=== PATIENT | female | born 1985 | race Caucasian/White ===

== ENCOUNTER → 2023-03-10 14:14 | Outpatient (CLI) | payer BC, SELFPAY ==
--- NOTE | 2023-03-10 14:17 | MR_ITS ---
FINAL REPORT CLINICAL HISTORY: PARESTHESIA. EPISODE OF NUMBNESS AND TINGLING BILATERAL ARMS. FINDINGS: Multiplanar MR imaging of the brain was performed without and with contrast. There is no evidence of intracranial hemorrhage or mass. No abnormal extra-axial fluid collection is seen. The ventricular size is within normal limits. There is no evidence of shift of the midline structures. The posterior fossa and brainstem have an unremarkable appearance. No area of abnormal restricted diffusion is identified. No abnormal contrast enhancement is seen. Normal major vessel vascular flow voids are noted. IMPRESSION: No acute intracranial abnormality identified. Reviewed, Interpreted and Dictated by Charan Gomez III, MD Transcribed by Nicki Titus Authenticated and [facility]
--- NOTE | 2023-03-10 15:23 | CA_ITS ---
FINAL REPORT TECHNIQUE: Color Doppler, duplex Doppler and bush scale sonography of the bilateral neck arterial vasculature was performed. Velocities were measured in the carotid arteries. Stenosis evaluation based on the validated velocity criteria. CLINICAL HISTORY: PARASTHESIA LEYDA ARMS FINDINGS: The peak systolic velocity of the right common carotid artery is 78 cm/s. The peak systolic velocity of the right internal carotid artery is 136 cm/s and end diastolic velocity 62 cm/s. The ICA/CCA ratio is 2.1. No significant plaque is present. The right external carotid artery is patent. The right vertebral artery is patent with antegrade flow. The peak systolic velocity of the left common carotid artery is 71 cm/s. The peak systolic velocity of the left internal carotid artery is 107 cm/s and end diastolic velocity 56 cm/s. The ICA/CCA ratio is 1.5. No significant plaque is present. The left external carotid artery is patent.The left vertebral artery is patent with antegrade flow. IMPRESSION: No significant stenosis identified. Bilateral patent vertebral arteries with antegrade flow. Reviewed, Interpreted and Dictated by Charan Gomez III, MD Transcribed by Nicki Titus Authenticated and [facility]
== END ==
PROVIDERS: PCP Internal Medicine Adolescent Medicine; Visit Provider Physician Assistant
DX: G60.9 Hereditary and idiopathic neuropathy, unspecified (principal); R20.2 Paresthesia of skin
CPT/HCPCS: 70553; 93880; A9576

== ENCOUNTER → 2023-04-01 23:20 | Outpatient (CLI) | payer BC, SELFPAY | PROVIDERS: Visit Provider Nurse Practitioner Family | DX: J02.9 Acute pharyngitis, unspecified (principal) | CPT/HCPCS: 87070 ==

== ENCOUNTER 2025-02-17 10:20 | Outpatient (CLI) | payer BC, SELFPAY ==
--- OUTSIDE RECORDS SUMMARY | 2025-02-17 10:22 | XMS_ITS | Clinical Summary ---
[facility] Address [address] [place] [address] Care Team Providers Care Head And Neck Surgeon Name Role Phone Provider, No Known Primary Care Provider Unavail able Allergies No known active allergies Medications Cholecalciferol (VITAMIN D) 2000 units capsule Take by mouth. Active docusate sodium 100 MG capsule Take 100 mg by mouth 2 (Two) Times a Day. 60 each 2 07/16/2018 Active ibuprofen (ADVIL,MOTRIN) 600 MG tablet Take 1 tablet by mouth Every 6 (Six) Hours As Needed for Mild Pain . 25 tablet 2 11/05/2018 10:14 AM EDT 11/05/2018 Active Junel 08/15 1-20 MG-MCG per tabletIndication s:Annual physical exam TAKE 1 TABLET BY MOUTH EVERY DAY 28 tablet 2022 Active Active Problems Problem Noted Date Diagnosed Date labor in third trimester 10/22/2018 Dichorionic diamniotic twin in third t rimester 07/14/2018 Short cervix affecting 07/14/2018 Resolved Problems Problem Noted Date Diagnosed Date Resolved Date Currently 11/02/2018 9 labor 10/12/2018 10/18/2018 uterine contractions in second trimester, antepartum 07/21/2018 10/18/2018 uterine contractions in second trimester, antepartum 07/20/2018 07/20/2018 Choroid plexus cysts, , affecting care of mother, antepartum 07/14/2018 10/18/2018 Premature labor 07/14/2018 07/16/2018 Family History Medical History Relation Name Comments Heart attack Father Diabetes Mother Hypertension Mother Stroke Paternal Grandmother Relation Name Status Comments Father Mother Alive Paternal Grandmother Social History Tobacco Use Types Packs/Day Years Used Date Smoking Tobacco: Never Smokeless Tobacco: Never Tobacco Cessation:Counseling Given: No Alcohol Use Standard Drinks/Week Comments Yes 0 (1 standard drink = 0.6 oz pur e alcohol) socially when not [place] Depression Scale Answer Date Recorded Retired [place] Depression Score 3 11/03/2018 Retired EPD Scale: Thought of Harming Self Unrec ognized value 11/03/2018 Abuse Screen Answer Date Recorded Unsafe at Home or Work/School Not on file Feels Threatened by Someone? Not on file 02/2023 Does Anyone Keep You from Co ntacting Others or Doint Things Outside the Home? Not on file 05/03/2023 Physical Sign of Abuse Present Not on file 1 Housing Stability Answer Date Recorded Current Living Arrangements Not on file 02/2023 Potentially Unsafe Housing Conditions Not on melyssa e 05/03/2023 Family and Community Support Answer Mo e Recorded Help with Day-to-Day Activities Not on file 05/03/2023 Lonely or Isolated Not on file 05/03/2023 Employment Answer Date Recorded Do you want help finding or keeping work or a elian b? Not on file 05/03/2023 Disabilities Answer Date Recorded Concentrating, Remembering, or Making Decisions Difficulty Not on file 05/03/2023 Doing Errands Independently Difficulty Not on fi le 05/03/2023 Education Answer Date Recorded Help with school or training? Not on file Preferred Language Not on file 05/03/2023 Comments No Sex and Gender Information Value Date Recorded Sex Assigned at Not on file Legal Sex Female 10:35 AM EDT Gender Identity Not on file Sexual Orientation Not on file Last Filed Vital Signs Vital Sign Reading Time Taken Comments Blood Pressure 120/78 01/22/2021 11:04 AM EDT Pulse 72 11/05/2018 11:43 AM EDT Temperature 36.4 C (97.6 F) 01/22/2021 11:04 AM EDT Respiratory Rate 18 11/05/2018 7:00 AM EDT Oxygen Saturation 100% 11/02/2018 10:26 PM EDT Inhaled Oxygen Concentration - - Weight 65.3 kg (144 lb) 01/22/2021 11:04 AM EDT Height 162.6 cm (5' 4 ) 11/02/2018 3:26 PM EDT Body Mass Index 24.72 11/02/2018 3:26 PM EDT Plan of Treatment Upcoming Encounters Date Type Department Care Team (Late st Contact Info) Description 04/25/2025 9:30 AM EDT Office Visit [facility] [address] [place] [address] Angel Ordoñez MD [address] [facility] [address] [place] [address] Health Maintenance Due Date Last Done Comments Annual Gynecologic Pelvic an d Breast Exam 1985 ANNUAL PHYSICAL 01/22/2022 01/22/2021 MAMMOGRAM 2024 COVID-19 Vaccine (3 - 2023-2 5 season) 2024 09/03/2020, 08/06/2020 INFLUENZA VACCINE 04/26/2025 TDAP/TD VACCINES (2 - Td or Tdap) 11/06/2028 11/06/2018 HEPATITIS C SCREENING Completed 05/04/2018 Pneumococcal Vaccine 0-49 Aged Out No longer eligible based on patient's age to complete this topic Procedures Procedure Name Priority Date/Time Associated Diagnosis Comments HEPATITIS C ANTIBODY Routine 05/04/2018 from Last 3 Months or Most Recently Relevant to Health Maintenance Results * Hepatitis C Antibody (05/04/2018) External Hepatitis C Ab Negative Blood us Historical Provider LAB BLOOD ORDERABLES Amisha l Result from Last 3 Months or Most Recently Relevant to Health Maintenance Insurance [facility] PPO Advance Directives * CPR (Attempt to Resuscitate) (Latest Code Status on File) Date Activated Date Inactivated Comments 11/02/2018 11:55 PM 11/05/2018 6:02 PM Question Answer Comments Code Status (Patient has no pulse and is not breathing): CPR (Attempt to Resuscitate) Medical Interventions (Patie nt has pulse or is breathing): Full * CPR (Attempt to Resuscitate) Date Activated Date Inactivated Comments 10/12/2018 11:30 PM 10/18/2018 3:52 PM Question Answer Comments Code Status (Patient has no pulse and is not breathing): CPR (Attempt to Resuscitate) Medical Interventions (Patie nt has pulse or is breathing): Full * CPR (Attempt to Resuscitate) Date Activated Date Inactivated Comments 07/20/2018 12:38 AM 07/20/2018 2:40 PM Question Answer Comments Code Status (Patient has no pulse and is not breathing): CPR (Attempt to Resuscitate) Medical Interventions (Patie nt has pulse or is breathing): Full * CPR (Attempt to Resuscitate) Date Activated Date Inactivated Comments 07/14/2018 2:49 PM 07/16/2018 4:56 PM Question Answer Comments Code Status (Patient has no pulse and is not breathing): CPR (Attempt to Resuscitate) Medical Interventions (Patie nt has pulse or is breathing): Full Care Teams Head And Neck Surgeon Relationship Specialty Start Date End Date Provider, [place] [address] PCP - General 06/30/18
--- NOTE | 2025-02-17 10:23 | MM_ITS ---
PROCEDURE INFORMATION: Exam: MG Bilateral Screening 3D Mammography Exam date and time: 02/17/2025 10:31 AM Age: 39 years old Clinical indication: Screening examination. Family history of breast carcinoma. TECHNIQUE: Imaging protocol: Bilateral Screening tomosynthesis and 2D mammography including computer-aided detection (CAD) when performed. COMPARISON: No relevant prior studies available. FINDINGS: MAMMOGRAPHY: Breast composition: The breasts are heterogeneously dense, which may obscure small masses. Mass: No suspicious masses. Architectural distortion: No suspicious distortion. Calcifications: No suspicious calcifications. Asymmetric density: None. Skin thickening: None. Axillary adenopathy: None. IMPRESSION: 1. No mammographic evidence of malignancy. Annual screening is recommended unless otherwise clinically indicated. 2. Given the reported risk factors for this patient, a breast cancer risk assessment may prove useful for further evaluation. ASSESSMENT: BI-RADS Category 1: Negative.
--- OUTSIDE RECORDS SUMMARY | 2025-02-17 10:23 | XMS_ITS | Clinical Summary ---
Author Organization Healthcare Address [address] [place] [address] Care Team Providers Care Collection Development Librarian Name Role Phone Marcio Pedraza MD Primary Care Provider + [phone] Allergies No known active allergies Medications fluticasone (Flonase) 50 MCG/ACT nasal spray Administer 1 spray into each nostril 1 (one) time each day. Shake gently. Before first use, prime pump. After use, clean tip and replace cap. Active sertraline (Zoloft) 50 MG tablet Take 1 tablet (50 mg) by mouth 1 (one) time each day. Active Active Problems No known active problems Social History Tobacco Use Types Packs/Day Years Used Date Smoking Tobacco: Never Smokeless Tobacco: Never Tobacco Cessation:Counseling Given: Not Answered Humiliation, Afraid, Rape, and Kick questionnair e Answer Date Recorded Within the last year, have y ou been afraid of your partner or ex-partner? No 05/12/2024 Within the last year, have y ou been humiliated or emotionally abused in other ways by your partner or ex-partner? No Within the last year, have y ou been kicked, hit, slapped, or otherwise physically hurt by your partner or ex-partner? No 05/12/2024 Within the last year, have y ou been raped or forced to have any kind of sexual activity by your partner or ex-partner? No 05/12/2024 PHQ-2 Answer Date Recorded Patient Health Questionnaire-2 Score 0 05/19/2024 Hunger Vital Sign Answer Date Recorded Within the past 12 months, y ou worried that your food would run out before you got the money to buy more. Never true 10/17/20 24 Within the past 12 months, t he food you bought just didn't last and you didn't have money to get more. Never true 05/12/2024 PRAPARE - Transportation Answer Date Re corded In the past 12 months, has l ack of transportation kept you from medical appointments or from getting medications? No 04/26 In the past 12 months, has l ack of transportation kept you from meetings, work, or from getting things needed for daily living? No 05/12/2024 Housing Stability Vital Sign Answer Mo e Recorded In the last 12 months, was t here a time when you were not able to pay the mortgage or rent on time? No 05/12/2024 Number of Places Lived in the Last Year Not on f ile 05/12/2024 In the last 12 months, was t here a time when you did not have a steady place to sleep or slept in a care home (including now)? No 05/12/2024 Safety and Environment Answer Date Adolph rded Do you worry that your child may have been physically abused? No 05/12/2024 Do you worry that your child may have been sexua lly abused? No 05/12/2024 Are there any guns kept in o r around your home or where your child spends time? No 05/12/2024 Guns Unloaded or Locked Away Not on file Comments Unknown Sex and Gender Information Value Date Recorded Sex Assigned at Not on file Legal Sex Female 8:08 PM EDT Gender Identity Not on file Sexual Orientation Not on file Last Filed Vital Signs Vital Sign Reading Time Taken Comments Blood Pressure 114/80 05/19/2024 8:46 AM EDT Pulse 78 05/19/2024 8:46 AM EDT Temperature 37.1 C (98.7 F) 05/19/2024 8:46 AM EDT Respiratory Rate 18 05/19/2024 8:46 AM EDT Oxygen Saturation 98% 05/19/2024 8:46 AM EDT Inhaled Oxygen Concentration - - Weight 72 kg (158 lb 10.3 oz) 05/19/2024 8:46 AM EDT Height 162.6 cm (5' 4 ) 05/19/2024 8:46 AM EDT Body Mass Index 27.23 05/19/2024 8:46 AM EDT Plan of Treatment Health Maintenance Due Date Last Done Comments [facility]-HIV Screening 1984 [facility]-Hepatitis C Screening 1984 [facility]-/Child/Adol SDOH Screenings 1984 [facility]-Varicella Vaccines (1 of 2 - 13+ 2-dose series) 1997 HPV Vaccines (1 - 3-dose series) 1999 [facility]- SDOH Screenings 2002 [facility]-Adult SDOH Screenings 2002 [facility]-Hepatitis B Vaccines (1 of 3 - 19+ 3-dose series) 2003 [facility]-Pap Smear 2005 [facility]-Cervical Cancer Screening 2014 [facility]-HPV/Cotest 2014 [facility]PU-KIMRF-70 Vaccine ( - season) 2024 09/03/2020, 08/06/2020 [facility]-Influenza Vaccine (#1) 2025 07/18/2019 [facility]-Depression Screening 05/19/2025 05/19/2024 [facility]-DTaP,Tdap,and Td Vaccine s (2 - Td or Tdap) 11/06/2028 11/06/2018 [facility]-Zoster Vaccines (1 of 2) 2034 [facility]-Obesity Intervention Completed 024, 05/12/2024 [facility]-HIB Vaccines Aged Out No longer e ligible based on patient's age to complete this topic [facility]-Hepatitis A Vaccines Aged Out No longer eligible based on patient's age to complete this topic [facility]-IPV Vaccines Aged Out No longer e ligible based on patient's age to complete this topic [facility]-Pneumococcal Vaccine: Pediatrics (0 to 5 Years) and At-Risk Patients (6 to 49 Years) Aged Out No longer eligible b ased on patient's age to complete this topic [facility]-Rotavirus Vaccines Aged Out No lo nger eligible based on patient's age to complete this topic Insurance [employer] Care Teams Collection Development Librarian Relationship Specialty Start Date End Date Marcio Pedraza MD [address] [place] [address] PCP - General Internal Medicine 05/11/24
== END 2025-02-17 23:59 | disposition home or self-care (01) ==
LOC: RAD 10:21
PROVIDERS: PCP Nurse Practitioner Family; Visit Provider Nurse Practitioner Family
DX: Z12.31 Encounter for screening mammogram for malignant neoplasm of breast (principal); R92.333 Mammographic heterogeneous density, bilateral breasts; Z80.3 Family history of malignant neoplasm of breast
CPT/HCPCS: 77063; 77067